=== PATIENT | male | born 1960 | race Caucasian/White ===

== ENCOUNTER 2024-05-21 09:07 | Observation (INO) | payer OTHER, SELFPAY ==
[2024-05-21] VITALS (9 sets, daily range): BP systolic 111–129; BP diastolic 73–99; PULSE 55–60; RESP 16–20; TEMP 36.4–36.6; O2SAT 94–98; BMI 29.0
--- NOTE | ~2024-05-21 | US_ITS ---
EXAMINATION: US ABDOMEN LIMITED HISTORY: RUQ pain TECHNIQUE: Real-time grayscale ultrasound imaging of the right upper quadrant was performed and images were reviewed. COMPARISON: There are no prior studies for comparison. FINDINGS: Liver: The liver is normal in size and demonstrates homogeneous echotexture. No focal mass or intrahepatic biliary ductal dilatation is identified. There is normal hepatopedal flow in the portal vein. Gallbladder and biliary tree: Multiple polyps are noted in the gallbladder measuring up to 3 mm in size. The gallbladder is otherwise unremarkable, without evidence of calculi, wall thickening, or pericholecystic fluid. There is no sonographic Levin sign. The common bile duct is normal in caliber measuring 3 mm. There is no free fluid in the right upper quadrant. US/US abdomen limited IMPRESSION: Multiple gallbladder polyps. Follow-up is recommended. Electronically signed by: Juan Camejo MD 05/21/2024 02:30 PM [facility] [place]
--- NOTE | ~2024-05-21 | CT_ITS ---
EXAMINATION: CT ANGIOGRAM CHEST CLINICAL INFORMATION: Chest pain, shortness of breath and near-syncope. COMPARISON: None available. TECHNIQUE: Multiple axial images were obtained through the chest after the administration of 50 mL of Omnipaque 350 intravenous contrast. Extensive vascular post-processing including two-dimensional and three-dimensional reformatted images were created and reviewed on an independent workstation. This CT examination was performed using dose optimization techniques as appropriate, variously including the following: *Automated exposure control *Adjustment of mA and/or kV according to patient size (this includes techniques or standardized protocols for targeted exams where dose is matched to indication/reason for exam; i.e. extremities or head) *Use of iterative reconstruction technique. DLP: 311. FINDINGS: VASCULAR: There is good opacification of pulmonary artery and branches without any intraluminal defect or narrowing. The pulmonary artery calibers normal. The thoracic aorta is of normal caliber without aneurysm. There is a normal three-vessel branching of the aortic arch. The heart size is normal. No pericardial effusion seen. No coronary artery calcification visualized. NONVASCULAR: Thyroid lobes are symmetrical and normal. Central trachea and bronchi are widely patent. No pleural effusion, calcification or pneumothorax. There is minimal bibasilar dependent pleural thickening.. No pneumothorax. No abnormal mediastinal or axillary lymphadenopathy. Chest wall is unremarkable. There is mild bilateral gynecomastia Visualized liver, spleen, pancreas and gallbladder appears unremarkable. No bony thorax abnormality seen. There are bilateral shoulder prosthesis.. CT/CT angio chest PE protocol IMPRESSION: No evidence of PE. No evidence of aortic aneurysm. The lungs are clear. Fleischner guidelines were followed. Electronically signed by: Gene Nye MD 05/21/2024 12:51 PM EST
--- NOTE | ~2024-05-21 | XR_ITS ---
EXAMINATION: XR CHEST CLINICAL INFORMATION: chest pain COMPARISON: None available. TECHNIQUE: 2 views of the chest were obtained. FINDINGS: The lungs are well-expanded and clear acute process. The heart size and pulmonary vascularity is normal. No gross bony abnormality seen. There are bilateral shoulder prosthesis. XR/XR chest 2V IMPRESSION: Unremarkable chest examination. Electronically signed by: Gene Nye MD 05/21/2024 10:12 AM [facility] [place]
--- NOTE | 2024-05-21 09:08 | ECG_ITS ---
Test Reason : cp Blood Pressure : / mmHG Vent. Rate : 063 BPM Atrial Rate : 063 BPM P-R Int : 172 ms QRS Dur : 096 ms QT Int : 394 ms P-R-T Axes : 024 -15 -05 degrees QTc Int : 403 ms Normal sinus rhythm Normal EKG No previous ECGs available Referred By: Generic ED Physician Electronically Signed By:BEBO GARSIA
[2024-05-21 09:32] LABS: MANUAL DIFF FLAG NO
[2024-05-21 09:33] LABS: Basophils Absolute Auto 0.1 X10*3/uL (0.0-0.2); Basophils Percent Auto 1.1 % (0-2); Eosinophils Absolute Auto 1.2 X10*3/uL (0.0-0.4); Eosinophils Percent Auto 19.4 % (0-4); Hematocrit 43.5 % (42.0-52.0); Hemoglobin 15.1 g/dl (14.0-18.0); Imm Gran Abs Auto 0.03 X10*3/uL (0.00-0.03); Imm Gran Pct Auto 0.5 % (0.0-0.4); Mean Corpuscular HGB Conc 34.7 g/dl (31.0-36.0); Mean Corpuscular Volume 83.7 fL (80.0-98.0); Mean Platelet Volume 9.3 fL (9.4-12.4); Monocytes Absolute Auto 0.6 X10*3/uL (0.1-1.2); Neutrophils Absolute Auto 3.4 x10*3/uL (2.0-8.3); Platelet Count 237 X10*3/uL (160-400); Red Cell Distribution Width 12.7 % (11.0-16.0); White Blood Count 6.4 X10*3/uL (4.8-10.8)
--- NOTE | 2024-05-21 09:44 | ED_ITS ---
HPI - Chest Pain General Chief Complaint: Chest Pain Stated Complaint: Chest pain blurry vision Time Seen by Provider: 05/21/24 09:39 Source: patient and family (patient's ) Mode of arrival: ambulatory Limitations: no limitations History of Present Illness ED Provider: Mari Benavidez PA-C HPI narrative: Patient is a 63 year old assigned male at with a history of HTN presenting to the emergency department today with left sided chest pain, jaw pain, and shortness of breath with walking. Patient states that over the last few weeks he has been having intermittent left sided chest pain, jaw pain, and shortness of breath with walking. Patient states that he was recently admitted at [facility] for this where they did a stress test that was negative and he is scheduled for an echo this coming Tuesday. Patient denies any dizziness, lightheadedness, abdominal pain, nausea, vomiting, fever, chills, blurry vision, double vision, loss of vision, back pain, night sweats, pain with urination, increased urinary frequency, increased urinary urgency, blood in his urine or stool, syncope or a near syncopal episode, recent trauma or falls, bowel incontinence, bladder incontinence, or any other complaints at this time. MD complaint: chest pain Relieving factors: nothing Exacerbating factors: nothing Related Data Home Medications ?Medication ?Instructions ?Recorded ?Confirmed alfuzosin 10 mg tablet,extended 10 mg PO BEDTIME 05/21/24 release 24 hr bupropion HCl (smoking deter) 150 150 mg PO BID 05/21/24 mg tablet,12 hr sustained-release(smoking deterrent) ibuprofen 800 mg tablet 800 mg PO BID 05/21/24 lisinopril 10 mg tablet 10 mg PO DAILY 05/21/24 Allergies Allergy/AdvReac Type Severity Reaction Status Date / Time morphine Allergy Nausea Verified 05/21/24 09:17 Review of Systems 2 Constitutional: Constitutional: Reports no additional constitutional complaints, Denies chills, Denies fever(s) and Denies night sweats Eyes: Eyes: Reports no additional eye complaints, Denies blurry vision, Denies change in vision, Denies diplopia, Denies eye discharge, Denies loss of vision and Denies eye pain ENT: Denies dizziness Cardiovascular: Cardiovascular: Reports no additional cardiovascular complaints, Reports chest pain, Denies lightheadedness, Denies Loss of Consciousness and Reports dyspnea (with walking) Respiratory: Respiratory: Reports no additional respiratory complaints and Reports dyspnea (with walking) Gastrointestinal: Gastrointestinal: Reports no additional gastrointestinal complaints, Denies abdominal pain, Denies melena, Denies hematochezia, Denies change in bowel habits and Denies change in stool character Genitourinary: Genitourinary: Reports no additional male genitourinary complaints, Denies hematuria, Denies oliguria, Denies difficulty urinating, Denies dysuria, Denies urinary frequency, Denies urinary hesitancy, Denies urinary incontinence and Denies urinary urgency Musculoskeletal: Musculoskeletal: Reports no additional musculoskeletal complaints, Denies numbness and Denies tingling Neurologic: Denies dizziness, Denies loss of vision, Denies numbness and Denies tingling Psychiatric: Psychiatric: Reports no additional psychiatric complaints Endocrine: Endocrine: Reports no additional endocrine complaints Hematologic/Lymphatic: Hematologic/Lymphatic: Reports no additional hematologic/lymphatic complaints Allergic/Immunologic: Allergic/Immunologic: Reports no additional allergic/immunologic complaints PMFSH Past Medical History Attestation statement: The following information was validated with the patient. (patient's validated all information) Source: old records reviewed, obtained from family (patient's provided additional history and confirmed the history provided by the patient.) and nursing notes reviewed Social History Social History Alcohol intake: never Advance Directives: No Advance Directives Information Provided: Yes Physical Exam 2 Vital Signs: Vital Signs: Last Vital Signs Temp 97.7 F 05/21/24 13:41 Pulse 55 05/21/24 13:41 Resp 18 05/21/24 13:41 BP 129/99 H 05/21/24 13:41 Pulse Ox 96 05/21/24 13:41 O2 Del Method Room Air 05/21/24 13:41 BMI result Body Mass Index 29.0 Const: General: cooperative, no acute distress, alert and awake Nutritional Appearance: well nourished Orientation/consciousness: patient oriented x3 Limitations: no limitations HEENT: Head: Yes normal to inspection and Yes atraumatic Ears: hearing grossly normal bilaterally and external ears normal General nose exam: Normal external nose present, no nasal discharge noted and no epistaxis Face and sinus: Yes normal facial exam, No abrasion and No laceration Mouth: Normal oral and palatal mucosa present, no drooling and no muffled voice Eyes: General: appearance normal, both eyes and all related structures P eriorbital: periorbital findings normal Eyelids: Yes eyelids normal C onjunctivae: conjunctivae normal Pupils: Equal, round and reactive pupils present EOM: EOMs intact bilaterally Neck: Neck: Yes normal visual inspection, Yes full ROM and Yes no lymphadenopathy Chest: Chest palpation & inspection: normal inspection of the chest Resp: Effort & Inspection: normal respiratory effort and able to speak in complete sentences GI: Inspection: Yes normal to inspection Neuro: General: patient oriented x3 and moves all extremities Cranial nerves: Yes Equal, round and reactive pupils present Cognition (Neuro): n ormal cognition Extrem: General: Yes normal to inspection, Yes full ROM and Yes capillary refill normal Psych: Appearance: grossly normal Mental Status: mental status grossly normal Affect: normal affect Attitude: cooperative Thought process: N ormal thought process present Thought content: Normal thought content present Insight: Good insight present (Psych) Medications Administered Discontinued Medications Generic Name Dose Route Start Last Admin Trade Name Alessandro PRN Reason Stop Dose Admin Iohexol 100 ml 05/21/24 12:24 05/21/24 12:25 Iohexol 350 Mg/Ml 100 Ml Infus..Btl IV 05/21/24 12:25 65 ml ONCE ONE Administration Morphine Sulfate 4 mg 05/21/24 11:25 05/21/24 11:39 Morphine Sulfate 4 Mg/Ml Cartridge IVPUSH 05/21/24 11:26 4 mg ONCE ONE Administration Protocol Morphine Sulfate 4 mg 05/21/24 13:25 05/21/24 13:41 Morphine Sulfate 4 Mg/Ml Cartridge IVPUSH 05/21/24 13:26 4 mg ONCE ONE Administration Protocol Ondansetron HCl 4 mg 05/21/24 11:25 05/21/24 11:37 Ondansetron Hcl 4 Mg/2 Ml Vial IVPUSH 05/21/24 11:26 4 mg ONCE ONE Administration Medical Decision Making Medical Decision Making MDM Narrative: Patient is a 63 year old assigned male at with a history of HTN presenting to the emergency department today with left sided chest pain, jaw pain, and shortness of breath with walking. Patient's physical exam was unremarkable. Patient's blood work was unremarkable. Patient's EKG was unremarkable. Patient stated that intermittently he has abdominal pain after eating - given he still has his gallbladder and his symptoms could be from deferred pain, I obtained an US of the RUQ which was negative for any acute biliary process. Patient's chest x-ray and CT PE study showed no acute process. I spoke to the facilities plant engineer apparel fashion designer who agreed the patient's story is concerning and recommended admission for echocardiogram tomorrow (05/22/2023). I spoke to the hospitalist team who agreed to admission. I explained my physical exam findings as well as all test results to the patient and the patient's . I answered all questions asked by the patient and the patient's . Patient and the patient's verbalized agreement and understanding with this treatment plan and admission. Differential Diagnosis Differential Diagnoses: The differential diagnosis associated with the presentation includes NSTEMI STEMI ACS Chest pain Atypical chest pain Admission/Observation Consideration of admission/observation: Escalation of care including admission/observation considered Patient admitted as noted in the MDM Rationale portion of this note. Consult Healthcare Provider Management of the patient was discussed with: Hospitalist (agreed to admission as noted in the MDM Rationale portion of this note.) and Web Production Designer (spoke to the facilities plant engineer as noted in the MDM Rationale portion of this note.) Lab Data [facility] Lab Attestation statement: I reviewed the patient's lab results. My interpretation of these results are in the MDM Rationale portion of this note. 05/21/24 09:26 05/21/24 09:26 Labs: Lab Results 05/21/24 05/21/24 05/21/24 Range/Units 09:26 09:47 11:50 WBC 6.4 (4.8-10.8) X10*3/uL RBC 5.20 (4.60-5.80) X10*6/uL Hgb 15.1 (14.0-18.0) g/dl Hct 43.5 (42.0-52.0) % MCV 83.7 (80.0-98.0) fL MCH 29.0 (27.0-33.0) pg MCHC 34.7 (31.0-36.0) g/dl RDW 12.7 (11.0-16.0) % Plt Count 237 (160-400) X10*3/uL MPV 9.3 L (9.4-12.4) fL Immature Gran % (Auto) 0.5 H (0.0-0.4) % Neut % (Auto) 54.0 (45-73) % Lymph % (Auto) 15.0 L (20-40) % Harvey % (Auto) 10.0 (2-11) % Eos % (Auto) 19.4 H (0-4) % Baso % (Auto) 1.1 (0-2) % Lymph # (Auto) 1.0 L (1.2-4.9) X10*3/uL Harvey # (Auto) 0.6 (0.1-1.2) X10*3/uL Eos # (Auto) 1.2 H (0.0-0.4) X10*3/uL Baso # (Auto) 0.1 (0.0-0.2) X10*3/uL Abs Immat Gran (auto) 0.03 (0.00-0.03) X10*3/uL Absolute Neuts (auto) 3.4 (2.0-8.3) x10*3/uL Absolute Nucleated RBC 0.000 (0.0-0.012) X10*3/uL Nucleated RBC % (auto) 0.0 (0.0-0.2) /100WBC Sodium 141 (135-145) mmol/L Potassium 3.9 (3.3-5.1) mmol/L Chloride 111 H (96-108) mmol/L Carbon Dioxide 21 L (22-29) mmol/L Anion Gap 13 (12-20) BUN 17 H (9-16) mg/dL Creatinine 0.93 (0.5-1.4) mg/dL Estim Creat Clear Calc 85.2 Estimated GFR > 60 Random Glucose 101 (60-115) mg/dL Calcium 9.4 (8.4-10.2) mg/dL Total Bilirubin 0.3 (0.0-1.0) mg/dL AST 22 (5-37) U/L ALT 24 (0-40) U/L Alkaline Phosphatase 86 (39-117) U/L Troponin I High Sens < 2.7 < 2.7 (<3.5-35.0) ng/L B-Natriuretic Peptide < 10 (<100) pg/mL Total Protein 7.1 (6.5-8.0) g/dL Albumin 4.2 (3.5-5.0) g/dL Influenza Type A (PCR) NEGATIVE (Negative) Influenza Type B (PCR) NEGATIVE (Negative) RSV RNA Qual (PCR) NEGATIVE (Negative) SARS-CoV-2 RNA (RT-PCR) NEGATIVE (Negative) Independent Interpretation I performed an independent interpretation of an: EKG, Plain X-Ray, Ultrasound and CT Scan Interpretation: My interpretation is in agreement with the radiologist's impression of these imaging studies. L EXAMINATION: XR CHEST CLINICAL INFORMATION: chest pain COMPARISON: None available. TECHNIQUE: 2 views of the chest were obtained. FINDINGS: The lungs are well-expanded and clear acute process. The heart size and pulmonary vascularity is normal. No gross bony abnormality seen. There are bilateral shoulder prosthesis. XR/XR chest 2V IMPRESSION: Unremarkable chest examination. Electronically signed by: Gene Nye MD 05/21/2024 10:12 AM [facility] Dictated By: Gene Nye MD Signed By: Electronically signed by Gene Nye MD 05/21/24 1012 Report Number: [id number]: Total DLP = 311.00 mGy-cm EXAMINATION: CT ANGIOGRAM CHEST CLINICAL INFORMATION: Chest pain, shortness of breath and near-syncope. COMPARISON: None available. TECHNIQUE: Multiple axial images were obtained through the chest after the administration of 50 mL of Omnipaque 350 intravenous contrast. Extensive vascular post-processing including two-dimensional and three- dimensional reformatted images were created and reviewed on an independent workstation. This CT examination was performed using dose optimization techniques as appropriate, variously including the following: *Automated exposure control *Adjustment of mA and/or kV according to patient size (this includes techniques or standardized protocols for targeted exams where dose is matched to indication/reason for exam; i.e. extremities or head) *Use of iterative reconstruction technique. DLP: 311. FINDINGS: VASCULAR: There is good opacification of pulmonary artery and branches without any intraluminal defect or narrowing. The pulmonary artery calibers normal. The thoracic aorta is of normal caliber without aneurysm. There is a normal three- vessel branching of the aortic arch. The heart size is normal. No pericardial effusion seen. No coronary artery calcification visualized. NONVASCULAR: Thyroid lobes are symmetrical and normal. Central trachea and bronchi are widely patent. No pleural effusion, calcification or pneumothorax. There is minimal bibasilar dependent pleural thickening.. No pneumothorax. No abnormal mediastinal or axillary lymphadenopathy. Chest wall is unremarkable. There is mild bilateral gynecomastia Visualized liver, spleen, pancreas and gallbladder appears unremarkable. No bony thorax abnormality seen. There are bilateral shoulder prosthesis. CT/CT angio chest PE protocol IMPRESSION: No evidence of PE. No evidence of aortic aneurysm. The lungs are clear. Fleischner guidelines were followed. Electronically signed by: Gene Nye MD 05/21/2024 12:51 PM [facility] Dictated By: eGne Nye MD Signed By: Electronically signed by Gene Nye MD 05/21/24 1251 EXAMINATION: US ABDOMEN LIMITED HISTORY: RUQ pain TECHNIQUE: Real-time grayscale ultrasound imaging of the right upper quadrant was performed and images were reviewed. COMPARISON: There are no prior studies for comparison. FINDINGS: Liver: The liver is normal in size and demonstrates homogeneous echotexture. No focal mass or intrahepatic biliary ductal dilatation is identified. There is normal hepatopedal flow in the portal vein. Gallbladder and biliary tree: Multiple polyps are noted in the gallbladder measuring up to 3 mm in size. The gallbladder is otherwise unremarkable, without evidence of calculi, wall thickening, or pericholecystic fluid. There is no sonographic Levin sign. The common bile duct is normal in caliber measuring 3 mm. There is no free fluid in the right upper quadrant. US/US abdomen limited IMPRESSION: Multiple gallbladder polyps. Follow-up is recommended. Electronically signed by: Juan Camejo MD 05/21/2024 02:30 PM EST Dictated By: Juan Camejo MD Signed By: Electronically signed by Juan Camejo MD 05/21/24 1430 Vent. Rate: 063 BPM Atrial Rate: 063 BPM P-R Int: 172 ms QRS Dur: 096 ms QT Int: 394 ms P-R-T Axes: 024 -15 -05 degrees QTc Int: 403 ms Normal sinus rhythm Inferior infarct, age undetermined No previous ECGs available DD/ 0911 Radiology Impression Discussion of test interpretation with radiology: I have reviewed the radiologist's reading. Independent Historian Clinical information obtained from an independent historian. History obtained from or confirmed by: Spouse (patient's provided additional history and confirmed the history provided by the patient.) Chronic Conditions Patient?s care impacted by: Hypertension Critical Care Time Critical Care Time Critical Care Time: Yes Total Critical Care Time: 42 Attestation: I spent 42 minutes of Critical Care Time with this patient. This does not include time spent on separately reported billable procedures. Discharge Plan Discharge Clinical Impression: Chest pain Patient Disposition: Admitted As Inpatient
[2024-05-21 09:57] LABS: Alanine Aminotransferase 24 U/L (0-40); Albumin Level 4.2 g/dL (3.5-5.0); Alkaline Phosphatase 86 U/L (39-117); Anion Gap 13 (12-20); Aspartate Amino Transferase 22 U/L (5-37); Bilirubin Total 0.3 mg/dL (0.0-1.0); Blood Urea Nitrogen 17 mg/dL (9-16); Calcium 9.4 mg/dL (8.4-10.2); Carbon Dioxide 21 mmol/L (22-29); Chloride 111 mmol/L (96-108); Creatinine Clr Calc Pharmacy 85.2; Estimated Glomerular Filt Rate > 60; Glucose Random 101 mg/dL (60-115); Potassium 3.9 mmol/L (3.3-5.1); Sodium 141 mmol/L (135-145); Total Protein 7.1 g/dL (6.5-8.0)
[2024-05-21 10:01] LABS: B Type Natriuretic Peptide < 10 pg/mL (<100)
[2024-05-21 10:04] LABS: Troponin-I High Sensitivity < 2.7 ng/L (<3.5-35.0)
[2024-05-21 10:39] LABS: Influenza A PCR NEGATIVE (Negative); Influenza B PCR NEGATIVE (Negative); Resp Syncy Virus RNA Qual PCR NEGATIVE (Negative); SARS COV2 PCR INHOUSE NEGATIVE (Negative)
[2024-05-21] MEDS: ondansetron HCL 4 MG/2 ML VIAL IVPUSH (11:37)
[2024-05-21] MEDS: Morphine Sulfate 4 MG/ML CARTRIDGE IVPUSH ×2 (11:39→13:41)
[2024-05-21 12:22] LABS: Troponin-I High Sensitivity < 2.7 ng/L (<3.5-35.0)
[2024-05-21] MEDS: iohexoL 350 MG/ML 100 ML INFUS..BTL IV (12:25)
--- NOTE | 2024-05-21 15:30 | P.HPHOSP_ITS ---
History of Present Illness Date of Service: 05/21/24 Chief Complaint: Chest pain 63-year-old man presented to the ER for complaints of left sided chest pain with jaw pain and shortness of breath with ambulation. He was at [facility] on 05/11/2024 chest pain but left against medical advice. He ended up having a stress test on 05/15/2024 that appeared to be normal. He reported that a few months ago he started feeling more shortness of breath especially with ambulation, difficulty with lying flat while in bed with accompanying dry cough and overall fatigue. He had seen his primary care provider and was found to have elevated blood pressure/hypertension and was started on lisinopril. He had been fairly stable but still with the fatigue and shortness breath up until he went to [facility] for further evaluation were on 05/11/2024 he developed the chest pain that radiated did from his left shoulder to his jaw and neck. He then reported that today since about 09:00 o'clock this morning has had this pain that he describes as steady dull pain 5/10 that also causes him to have what seems like a migraine headache. He denied any increase pain with inspiration. He also denied any nausea, vomiting, diarrhea, visual changes, loss of consciousness, recent trauma or injury. In the ER, troponins were negative for any acute ischemic changes, negative troponin, chest CTA negative for consolidation or effusion or pulmonary embolism. In the ER he received a dose of aspirin, morphine, Zofran. Plan is to place on observation for further management and treatment of chest pain. Review of Systems 2 Review of Systems: Denies any recent fever chills or decrease in appetite respiratory see HPI cardiovascular See HPI gastrointestinal denies any dysphagia abdominal pain nausea vomiting or diarrhea genitourinary denies any dysuria frequency or hematuria musculoskeletal denies any joint pain or swelling neuropsych denies any weakness or seizures all other systems reviewed are negative [facility] Medical History (Updated 05/21/24 @ 17:36 by Toya Johnson NP) Hypertension Pertinent family history: No significant cardiac history Surgical History (Updated 05/21/24 @ 17:36 by Toya Johnson NP) H/O knee surgery H/O shoulder surgery Social History Alcohol intake: never Patient Tobacco Use Status: Never used Tobacco Advance Directives: No Advance Directives Information Provided: Yes Meds Allergies Allergy/AdvReac Type Severity Reaction Status Date / Time morphine Allergy Nausea Verified 05/21/24 09:17 Active Medications: Current Medications Acetaminophen (Acetaminophen 325 Mg Tablet) 650 mg PO Q6H PRN PRN Reason: Pain, Mild 1-3,fever,headache Calcium Carbonate (Calcium Carbonate 750 Mg Tab.Chew) 750 mg PO Q4H PRN PRN Reason: Heartburn Enoxaparin Sodium (Enoxaparin Sodium 40 Mg/0.4 Ml Syringe) 40 mg SUBCUT Q24H [facility] Magnesium Hydroxide (Milk Of Magnesia 30 Ml Oral.Susp) 30 ml PO DAILY PRN PRN Reason: Constipation Melatonin (Melatonin 3 Mg Tablet) 6 mg PO BEDTIME PRN PRN Reason: Insomnia Ondansetron HCl (Ondansetron Hcl 4 Mg/2 Ml Vial) 4 mg IVPUSH Q8H PRN PRN Reason: Nausea and Vomiting Sodium Chloride (0.9 % Sodium Chloride Flush 3 Ml Syringe) 3 ml IVFLUSH QSHIFT [facility] Home Medications ?Medication ?Instructions ?Recorded ?Confirmed ?Last Taken ?Type alfuzosin 10 mg tablet,extended 10 mg PO BEDTIME 05/21/24 05/21/24 05/20/24 History release 24 hr bupropion HCl (smoking deter) 150 300 mg PO DAILY 05/21/24 05/21/24 05/21/24 History mg tablet,12 hr sustained-release(smoking deterrent) ibuprofen 800 mg tablet 800 mg PO BID 05/21/24 05/21/24 05/21/24 History lisinopril 10 mg tablet 10 mg PO BEDTIME 05/21/24 05/21/24 05/20/24 History omeprazole 20 mg capsule,delayed 20 mg PO DAILY@0630 PRN Heartburn 05/21/24 05/21/24 1 Week Ago History release ~05/14/24 Physical Exam 2 Vital Signs and Narrative: Vital Signs: Last Vital Signs Temp 97.7 F 05/21/24 13:41 Pulse 55 05/21/24 13:41 Resp 18 05/21/24 13:41 BP 129/99 H 05/21/24 13:41 Pulse Ox 96 05/21/24 13:41 O2 Del Method Room Air 05/21/24 13:41 BMI result Body Mass Index 29.0 Appearing in no acute distress head is normocephalic atraumatic eyes pupils are PERRLA sclera is anicteric mouth throat mucous membranes are intact and moist neck is supple no lymphadenopathy, no JVD noted lung sounds are clear to auscultation heart regular rate rhythm, clear S1, S2 positive bowel sounds, abdomen is soft, nontender neuro patient is alert x3, no focal deficits Results Labs 05/21/24 09:26 05/21/24 09:26 Labs: Laboratory Results - last 24 hr 05/21/24 05/21/24 05/21/24 09:26 09:47 11:50 MCV 83.7 MCH 29.0 MCHC 34.7 RDW 12.7 Plt Count 237 MPV 9.3 L Immature Gran % (Auto) 0.5 H Neut % (Auto) 54.0 Lymph % (Auto) 15.0 L [place] % (Auto) 10.0 Eos % (Auto) 19.4 H Baso % (Auto) 1.1 Lymph # (Auto) 1.0 L [place] # (Auto) 0.6 Eos # (Auto) 1.2 H Baso # (Auto) 0.1 Abs Immat Gran (auto) 0.03 Absolute Neuts (auto) 3.4 Absolute Nucleated RBC 0.000 Nucleated RBC % (auto) 0.0 Anion Gap 13 Estim Creat Clear Calc 85.2 Estimated GFR > 60 Random Glucose 101 Calcium 9.4 Total Bilirubin 0.3 AST 22 ALT 24 Alkaline Phosphatase 86 Troponin I High Sens < 2.7 < 2.7 B-Natriuretic Peptide < 10 Total Protein 7.1 Albumin 4.2 Influenza Type A (PCR) NEGATIVE Influenza Type B (PCR) NEGATIVE RSV RNA Qual (PCR) NEGATIVE SARS-CoV-2 RNA (RT-PCR) NEGATIVE Imaging Radiologist's Impressions: Impressions Chest X-Ray 05/21/24 09:30 IMPRESSION: Unremarkable chest examination. Electronically signed by: Gene Nye MD 05/21/2024 10:12 AM EST RP Chest CTA 05/21/24 11:58 IMPRESSION: No evidence of PE. No evidence of aortic aneurysm. The lungs are clear. Fleischner guidelines were followed. Electronically signed by: Gene Nye MD 05/21/2024 12:51 PM EST RP Abdomen Ultrasound 05/21/24 14:06 IMPRESSION: Multiple gallbladder polyps. Follow-up is recommended. Electronically signed by: Juan Camejo MD 05/21/2024 02:30 PM [facility] Assessment and Plan (1) Chest pain: Status: Acute Plan 63 year old man placed on observation for chest pain Chest pain ongoing chest pain after recent visit to [facility] on 05/12/24 normal stress test at [facility] negative troponin, negative BNP, no acute ischemic changes on patent leather sorter on telemetry asa and statin cardiology consultation echocardiogram ordered Analgesics as needed Mental health Continue home medications GERD Continue PPI DVT prophylaxis with Lovenox Full code Quality Stroke Does the patient have a stroke diagnosis?: No VTE Prior VTE?: No VTE Risk Level:: Medical - moderate - high VTE Device Contraindication: Treatment Not Indicated VTE Drug Contraindication: N/A - Med Ordered
--- NOTE | 2024-05-21 16:04 | PHA.MEDREC ---
Addendum entered by Mary Angel RPh 05/21/24 16:20: reviewed by [facility]. Original Note: Pharmacy Consult ? Medication Reconciliation Pharmacy has completed the medication reconciliation. Spoke with patient and he confirmed his medications. Patient confirmed he takes the Bupropion 150mg tabs 2 tabs (300mg) in the morning instead of 150mg BID and states its been working fine for him. He confirmed he takes his Lisinopril 10mg tab at bedtime with his Alfuzosin 10mg tab. He states he still takes Omeprazole 20mg tabs as needed for heartburn and he states he last took it about a week ago. He states he is not longer taking the Zolpidem 10mg tab and has not in a while . He confirmed he took all his morning medications this morning and his nighttime medications last night.
[2024-05-21] MEDS: Enoxaparin Sodium 40 MG/0.4 ML SYRINGE SUBCUT (16:22)
[2024-05-21] MEDS: Aspirin 81 MG TAB.CHEW 324 MG PO (16:22)
[2024-05-21] MEDS: 0.9 % Sodium Chloride Flush 3 ML SYRINGE IVFLUSH (16:23)
[2024-05-21] MEDS: Ketorolac Tromethamine 30 MG/ML VIAL IVPUSH (17:55)
[2024-05-21] MEDS: Morphine Sulfate 2 MG/ML CARTRIDGE IVPUSH (19:01)
[2024-05-21] MEDS: lisinopriL 10 MG TABLET PO (22:39)
[2024-05-21] MEDS: Tamsulosin HCL 0.4 MG CAPSULE PO (22:39)
[2024-05-21] MEDS: Atorvastatin Calcium 80 MG TABLET PO (22:39)
[2024-05-21] MEDS: Ibuprofen 800 MG TABLET PO (23:03)
[2024-05-22] VITALS (9 sets, daily range): BP systolic 102–126; BP diastolic 60–79; PULSE 51–59; RESP 12–20; TEMP 36.5–37.1; O2SAT 94–97
[2024-05-22] MEDS: Morphine Sulfate 2 MG/ML CARTRIDGE IVPUSH (00:45)
[2024-05-22 04:58] LABS: Hemoglobin 13.9 g/dl (14.0-18.0); Mean Corpuscular HGB Conc 33.9 g/dl (31.0-36.0); Mean Corpuscular Hemoglobin 28.8 pg (27.0-33.0); Mean Corpuscular Volume 85.1 fL (80.0-98.0); Mean Platelet Volume 9.3 fL (9.4-12.4); Platelet Count 226 X10*3/uL (160-400); Red Blood Count 4.82 X10*6/uL (4.60-5.80); White Blood Count 7.3 X10*3/uL (4.8-10.8)
[2024-05-22 05:29] LABS: Anion Gap 9 (12-20); Blood Urea Nitrogen 20 mg/dL (9-16); Calcium 9.1 mg/dL (8.4-10.2); Carbon Dioxide 27 mmol/L (22-29); Chloride 107 mmol/L (96-108); Creatinine Clr Calc Pharmacy 89.1; Estimated Glomerular Filt Rate > 60; Glucose Random 101 mg/dL (60-115); Potassium 4.1 mmol/L (3.3-5.1); Sodium 139 mmol/L (135-145)
--- NOTE | 2024-05-22 07:00 | CA_ITS ---
Transthoracic Echocardiogram Patient (Last, First, Middle): Lalito Aburto F Gender: Male Date of : 1960 Age: 63 Procedure Date: 05/22/2024 Procedure Type: Transthoracic Echocardiogram Location: ER Height: 170.18 cm Weight: 83.92 kg BSA: 1.96 m2 Heart Rate: 52 bpm BP: 117 / 54 mmHg Resource Development Director: LOUISA Referring MD: Christian Duran MD Symptoms: chest pain Study Quality: Fair ECG Rhythm: Bradycardia Conclusions: - The left ventricular systolic function is normal. The visually estimated ejection fraction is between 65-70%. - No obvious valvular pathology seen on this study. - There is mild dilatation of the ascending aorta measuring 4.20 cm. Findings Left Ventricle Normal left ventricular cavity size. There is mildly increased left ventricular wall thickness. The left ventricular systolic function is normal. The visually estimated ejection fraction is between 65-70%. There is no evidence of regional wall motion abnormalities. Diastolic function is normal for age. Right Ventricle Normal right ventricular cavity size and systolic function. Atria Both atria are normal in size. Aortic Valve There is a normal trileaflet aortic valve. There is no aortic valve stenosis. There is no aortic valve regurgitation. Mitral Valve The mitral valve appears normal. There is no mitral valve regurgitation. There is no mitral valve stenosis. Pulmonic Valve The pulmonic valve is likely normal. Tricuspid Valve There is trace tricuspid valve regurgitation. There is no evidence of pulmonary hypertension. Great Vessels There is mild dilatation of the ascending aorta measuring 4.20 cm. (measurement larger in image due to end-systole). Venous The inferior vena cava is normal in size and collapses greater than 50% with inspiration. Pericardium/Pleural There is no evidence of pericardial effusion. Prior Study Comparison No prior study available for comparison. Recommendations, Care & Conclusions No obvious valvular pathology seen on this study. Measurements 2D Linear Measurements IVSd: 1.13 0.6-0.9/0.6-1.0 cm LVIDd: 4.16 3.9-5.3/4.2-5.9 cm LVIDd Index: 2.12 2.4-3.2/2.2-3.1 cm/m2 LVIDs: 2.49 2.0-3.6 cm LVPWd: 1.07 0.7-1.1 cm LA Diam: 3.10 2.7-3.8/3.0-4.0 cm LAIDs Index: 1.58 1.5-2.3 cm/m2 LV Mass: 192.68 67-162/88-224 g LV Mass Index: 98.31 43-95/49-115 g/m2 LVOT Diam: 2.30 3.0+(-)1.3 cm 2D Systolic Function EF 4C: 61.30 >55% EF 2C: 69.20 >55% EF BiP: 65.10 >55% Mitral Valve MV Pk E: 1.00 MV PK A: 0.96 MV Decel Time: 266.00 E/A: 1.00 E'Lateral: 10.60 E'Medial: 7.18 E/E' Med: 13.90 E/E' Lat: 9.40 PHT: 78.00 MVA PHT: 2.[address] [facility] [place] [employer]: 3.75 Aortic Valve AoV Pk Devendra: 1.47 AoV Mn Devendra: 1.00 AoV VTI: 0.34 AoV Pk Grad: 9.00 Aov Mn Grad: 5.00 RILEY Cont.VTI: 3.17 LVOT LVOT Pk Devendra: 1.13 LVOT Mn Devendra: 0.82 LVOT VTI: 0.26 LVOT Pk Grad: 5.00 LVOT Mn Grad: 3.00 LVOT Diam: 2.30 LVOT Area: 4.15 Diastolic Function MV Pk E: 1.00 MV Pk A: 0.96 E/A: 1.00 E'Medial: 7.18 E/E' Med: 13.90 E' Laterial: 10.60 E/E' Lat: 9.40 Right Ventricle TAPSE (mm): 29.60 TVS' Devendra: 15.30 Tricuspid Valve TR Pk Devendra: 2.21 TR Pk Grad: 20.00 RA Press: 3.00 RVSP: 23.00 Great Vessels Aorta Sinus of Valsalva: 3.80 2.0-3.5 cm Ao Asc: 4.20 2.1-3.4 cm Ao Arch: 3.00 Pulmonary Valve PV Pk Devendra: 0.96 Peak PV Grad: 4.00 Updated in Other Vendor System with Status of Final Christian Duran MD electronically signed on 05/22/2024 12:00:13 PM with status of Final
[2024-05-22] MEDS: Ibuprofen 800 MG TABLET PO ×2 (07:22→20:57)
[2024-05-22] MEDS: Aspirin 81 MG TAB.CHEW PO (07:23)
[2024-05-22] MEDS: 0.9 % Sodium Chloride Flush 3 ML SYRINGE IVFLUSH ×3 (07:23→20:58)
[2024-05-22] MEDS: buPROPion HCl XL 300 MG TAB.ER.24H PO (08:32)
--- NOTE | 2024-05-22 10:31 | PM.CNCAR ---
History of Present Illness History of Present Illness Date of Service: 05/22/24 Chief complaint: chest pain Narrative: This is a cardiology consultation regarding chest pain. Discussed with patient as well as significant other in detail. Essentially, patient has not been feeling good for the last several months. He states that whenever realized on, he feels like he is coughing. With activity, he is having shortness of breath. On 2 different occasions, he had chest pain but at the same time he also had neck pain and headaches. However, difficult to say if it is truly chest pain that is radiating up to the jaw or he feels having pain in different areas like chest, headache, shoulder, jaw pain extra. He is also feeling short of breath with activity. He had a stress test through his own PCP and actually did quite well with a good exercise tolerance and did not have any chest pain. Hence the chest pain itself is not clear if angina or not. Once, the chest pain happened when he was having dinner and sitting down and another time after driving. Hence not truly exertional. He is indeed able to carry out his activities without any exertional chest pains. Review of Systems Review of Systems: Yes all other systems are reviewed and are negative Constitutional: Constitutional: Reports as per HPI and Reports no additional constitutional complaints Eyes: Eyes: Reports as per HPI and Denies no additional eye complaints ENT: Denies system reviewed and no additional complaints, except as documented and Reports as per HPI Cardiovascular: Cardiovascular: Reports as per HPI, Reports no additional cardiovascular complaints, Denies acrocyanosis, Denies cool extremities, Reports chest pain, Denies leg edema, Denies lightheadedness, Denies palpitations and Reports dyspnea Respiratory: Respiratory: Reports as per HPI, Denies no additional respiratory complaints, Reports cough and Reports dyspnea Gastrointestinal: Gastrointestinal: Reports as per HPI and Denies no additional gastrointestinal complaints Genitourinary: Genitourinary: Reports no additional male genitourinary complaints and Reports as per HPI Musculoskeletal: Musculoskeletal: Reports no additional musculoskeletal complaints and Reports as per HPI Integumentary/Breasts: Skin/Breast: Reports system reviewed and no additional complaints, except as docu Neurologic: Reports system reviewed and no additional complaints, except as documented and Reports as per HPI Psychiatric: Psychiatric: Reports no additional psychiatric complaints and Reports as per HPI Endocrine: Endocrine: Reports no additional endocrine complaints, Reports as per HPI and Denies palpitations Hematologic/Lymphatic: Hematologic/Lymphatic: Reports no additional hematologic/lymphatic complaints and Reports as per HPI Allergic/Immunologic: Allergic/Immunologic: Reports no additional allergic/immunologic complaints and Reports as per HPI [facility] Past Medical History Medical History (Updated 05/22/24 @ 10:34 by Christian Duran MD) Hypertension Family History Family History Father No problems noted. Mother No problems noted. Surgical History Surgical History (Updated 05/21/24 @ 17:36 by Toya Johnson NP) H/O knee surgery H/O shoulder surgery Social History Social History Alcohol intake: never Patient Tobacco Use Status: Never used Tobacco Advance Directives: No Advance Directives Information Provided: Yes Meds Allergies Allergy/AdvReac Type Severity Reaction Status Date / Time morphine Allergy Nausea Verified 05/21/24 09:17 Active Medications: Current Medications Acetaminophen (Acetaminophen 325 Mg Tablet) 650 mg PO Q6H PRN PRN Reason: Pain, Mild 1-3,fever,headache Aspirin (Aspirin 81 Mg Tab.Chew) 81 mg PO DAILY [facility] Last Admin: 05/22/24 07:23 Dose: 81 mg Atorvastatin Calcium (Atorvastatin Calcium 80 Mg Tablet) 80 mg PO BEDTIME NANO Last Admin: 05/21/24 22:39 Dose: 80 mg Bupropion HCl (Bupropion Hcl Xl 300 Mg Tab.Er.24h) 300 mg PO DAILY [facility] Last Admin: 05/22/24 08:32 Dose: 300 mg Calcium Carbonate (Calcium Carbonate 750 Mg Tab.Chew) 750 mg PO Q4H PRN PRN Reason: Heartburn Enoxaparin Sodium (Enoxaparin Sodium 40 Mg/0.4 Ml Syringe) 40 mg SUBCUT Q24H [facility] Last Admin: 05/21/24 16:22 Dose: 40 mg Ibuprofen (Ibuprofen 800 Mg Tablet) 800 mg PO BID [facility] Last Admin: 05/22/24 07:22 Dose: 800 mg Lisinopril (Lisinopril 10 Mg Tablet) 10 mg PO BEDTIME [facility]; Protocol Last Admin: 05/21/24 22:39 Dose: 10 mg Magnesium Hydroxide (Milk Of Magnesia 30 Ml Oral.Susp) 30 ml PO DAILY PRN PRN Reason: Constipation Melatonin (Melatonin 3 Mg Tablet) 6 mg PO BEDTIME PRN PRN Reason: Insomnia Morphine Sulfate (Morphine Sulfate 2 Mg/Ml Cartridge) 2 mg IVPUSH Q4H PRN; Protocol PRN Reason: Pain, Severe (Pain Scale 7-10) Last Admin: 05/22/24 00:45 Dose: 2 mg Omeprazole (Omeprazole 20 Mg Capsule.Dr) 20 mg PO DAILY@0630 PRN PRN Reason: Heartburn Ondansetron HCl (Ondansetron Hcl 4 Mg/2 Ml Vial) 4 mg IVPUSH Q8H PRN PRN Reason: Nausea and Vomiting Oxycodone HCl (Oxycodone Hcl Immed Release 5 Mg Tablet) 5 mg PO Q4H PRN PRN Reason: Pain, Moderate(Pain Scale 4-6) Sodium Chloride (0.9 % Sodium Chloride Flush 3 Ml Syringe) 3 ml IVFLUSH [facility] Last Admin: 05/22/24 07:23 Dose: 3 ml Tamsulosin HCl (Tamsulosin Hcl 0.4 Mg Capsule) 0.4 mg PO BEDTIME [facility] Last Admin: 05/21/24 22:39 Dose: 0.4 mg Home Medications ?Medication ?Instructions ?Recorded ?Confirmed ?Last Taken ?Type alfuzosin 10 mg tablet,extended 10 mg PO BEDTIME 05/21/24 05/21/24 05/20/24 History release 24 hr bupropion HCl (smoking deter) 150 300 mg PO DAILY 05/21/24 05/21/24 05/21/24 History mg tablet,12 hr sustained-release(smoking deterrent) ibuprofen 800 mg tablet 800 mg PO BID 05/21/24 05/21/24 05/21/24 History lisinopril 10 mg tablet 10 mg PO BEDTIME 05/21/24 05/21/24 05/20/24 History omeprazole 20 mg capsule,delayed 20 mg PO DAILY@0630 PRN Heartburn 05/21/24 05/21/24 1 Week Ago History release ~05/14/24 Physical Exam Vital Signs: Vital Signs: Last Vital Signs Temp 98.2 F 05/22/24 01:14 Pulse 51 05/22/24 05:06 Resp 12 05/22/24 05:06 BP 102/60 05/22/24 05:06 Pulse Ox 97 05/22/24 05:06 O2 Del Method Room Air 05/22/24 05:06 BMI result Body Mass Index 29.0 Const: General: comfortable and no acute distress Orientation/consciousness: patient oriented x3 HEENT: Other: Unremarkable Head: Yes normal to inspection Neck: Neck: Yes normal visual inspection Chest: Chest palpation & inspection: normal inspection of the chest Resp: Auscultation: clear to auscultation bilaterally Cardio: Palpation: normal PMI Heart sounds: S1 normal heart sound present, S2 normal heart sound present, no gallops, no murmurs and no rubs GI: Palpation (GI): Soft to palpation Back/Spine/Pelvis: Other: unremarkable Skin: General skin exam: no rashes or lesions noted Neuro: General: patient oriented x3 Extrem: General: Yes normal to inspection Psych: Mental Status: mental status grossly normal Objective Labs and Meds 05/22/24 04:39 05/22/24 04:39 Lab results: Laboratory Results - last 24 hr 05/21/24 05/21/24 05/22/24 09:47 11:50 04:39 WBC 7.3 RBC 4.82 Hgb 13.9 L Hct 41.0 L MCV 85.1 MCH 28.8 MCHC 33.9 RDW 13.0 Plt Count 226 MPV 9.3 L Absolute Nucleated RBC 0.000 Nucleated RBC % (auto) 0.0 Sodium 139 Potassium 4.1 Chloride 107 Carbon Dioxide 27 Anion Gap 9 L BUN 20 H Creatinine 0.89 Estim Creat Clear Calc 89.1 Estimated GFR > 60 Random Glucose 101 Calcium 9.1 Troponin I High Sens < 2.7 Influenza Type A (PCR) NEGATIVE Influenza Type B (PCR) NEGATIVE RSV RNA Qual (PCR) NEGATIVE SARS-CoV-2 RNA (RT-PCR) NEGATIVE ECG Interpretation: EKG shows underlying sinus rhythm at 63/Min; can not exclude old inferior infarct but more likely from body habitus; normal PA and corrected QT. Imaging Radiologist's impression: Impressions Chest CTA 05/21/24 11:58 IMPRESSION: No evidence of PE. No evidence of aortic aneurysm. The lungs are clear. Fleischner guidelines were followed. Electronically signed by: Gene Nye MD 05/21/2024 12:51 PM [facility] Abdomen Ultrasound 05/21/24 14:06 IMPRESSION: Multiple gallbladder polyps. Follow-up is recommended. Electronically signed by: Juan Camejo MD 05/21/2024 02:30 PM [facility] Assessment and Plan (1) Chest pain: Status: Acute (2) SOB (shortness of breath): Status: Acute Plan In the stress test performed at [facility], he was able to do 11 METS on Marvin protocol and reached 73% of max predicted heart rate. Hence suboptimal heart rate response. However, no angina, ischemic findings on the EKG during the study. In the CT scan, normal cardiac size, no pericardial effusion or coronary calcification. Overall, uncertain etiology for his symptoms. Not classic for cardiac but definitely needs further evaluation. Cardiac BNP as well as troponins are unremarkable. We will start with an echocardiogram. If this is unremarkable, then consider either an exercise stress echocardiogram or nuclear perfusion imaging based on availability. Discussed with significant other. Procedures Date of Service Date of Service: 05/22/24
--- NOTE | 2024-05-22 10:49 | PC.NURSE ---
Patient states he walked to the bathroom, upon returning he feels nauseous, dizzy, and has a headache. will notify
[2024-05-22] MEDS: ondansetron HCL 4 MG/2 ML VIAL IVPUSH (10:55)
--- NOTE | 2024-05-22 11:41 | MHC.CM.PN ---
Mireya 05/22/24, Pt lives with his , he is independent, no home health services or DME. HCP discussed, he declined to complete form. PCP confirmed: Jessica Chung. to transport home at [place]. DCP: home, self care. CM to follow for DC needs.
--- NOTE | 2024-05-22 11:58 | HO.PM.IMPN ---
Subjective Subjective Date of Service: 05/22/24 Review of Systems Follow up chest pain Physical Exam Vital Signs: Vital Signs: Last Vital Signs Temp 98.2 F 05/22/24 01:14 Pulse 51 05/22/24 10:49 Resp 20 05/22/24 10:49 BP 120/79 05/22/24 10:49 Pulse Ox 96 05/22/24 10:49 O2 Del Method Room Air 05/22/24 05:06 BMI result Body Mass Index 29.0 Appearing in no acute distress lung sounds are clear to auscultation heart regular rate rhythm, clear S1, S2 positive bowel sounds, abdomen is soft, nontender neuro patient is alert x3, no focal deficits Objective Data Active Medications Acetaminophen (Acetaminophen 325 Mg Tablet) 650 mg PO Q6H PRN PRN Reason: Pain, Mild 1-3,fever,headache Aspirin (Aspirin 81 Mg Tab.Chew) 81 mg PO DAILY [facility] Last Admin: 05/22/24 07:23 Dose: 81 mg Documented By: TERESA Atorvastatin Calcium (Atorvastatin Calcium 80 Mg Tablet) 80 mg PO BEDTIME [facility] Last Admin: 05/21/24 22:39 Dose: 80 mg Documented By: JACKSON Bupropion HCl (Bupropion Hcl Xl 300 Mg Tab.Er.24h) 300 mg PO DAILY [facility] Last Admin: 05/22/24 08:32 Dose: 300 mg Documented By: TERESA Calcium Carbonate (Calcium Carbonate 750 Mg Tab.Chew) 750 mg PO Q4H PRN PRN Reason: Heartburn Enoxaparin Sodium (Enoxaparin Sodium 40 Mg/0.4 Ml Syringe) 40 mg SUBCUT Q24H [facility] Last Admin: 05/21/24 16:22 Dose: 40 mg Documented By: CHRIST Ibuprofen (Ibuprofen 800 Mg Tablet) 800 mg PO BID [facility] Last Admin: 05/22/24 07:22 Dose: 800 mg Documented By: TERESA Lisinopril (Lisinopril 10 Mg Tablet) 10 mg PO BEDTIME [facility]; Protocol Last Admin: 05/21/24 22:39 Dose: 10 mg Documented By: JACKSON Magnesium Hydroxide (Milk Of Magnesia 30 Ml Oral.Susp) 30 ml PO DAILY PRN PRN Reason: Constipation Melatonin (Melatonin 3 Mg Tablet) 6 mg PO BEDTIME PRN PRN Reason: Insomnia Morphine Sulfate (Morphine Sulfate 2 Mg/Ml Cartridge) 2 mg IVPUSH Q4H PRN; Protocol PRN Reason: Pain, Severe (Pain Scale 7-10) Last Admin: 05/22/24 00:45 Dose: 2 mg Documented By: JACKSON Omeprazole (Omeprazole 20 Mg Capsule.) 20 mg PO DAILY@0630 PRN PRN Reason: Heartburn Ondansetron HCl (Ondansetron Hcl 4 Mg/2 Ml Vial) 4 mg IVPUSH Q8H PRN PRN Reason: Nausea and Vomiting Last Admin: 05/22/24 10:55 Dose: 4 mg Documented By: TERESA Oxycodone HCl (Oxycodone Hcl Immed Release 5 Mg Tablet) 5 mg PO Q4H PRN PRN Reason: Pain, Moderate(Pain Scale 4-6) Sodium Chloride (0.9 % Sodium Chloride Flush 3 Ml Syringe) [facility] Last Admin: 05/22/24 07:23 Dose: 3 ml Documented By: TERESA Tamsulosin HCl (Tamsulosin Hcl 0.4 Mg Capsule) 0.4 mg PO BEDTIME [facility] Last Admin: 05/21/24 22:39 Dose: 0.4 mg Documented By: JACKSON Labs 05/22/24 04:39 05/22/24 04:39 Labs: Laboratory Results - last 24 hr 05/21/24 05/22/24 11:50 04:39 MCV 85.1 MCH 28.8 MCHC 33.9 RDW 13.0 Plt Count 226 MPV 9.3 L Absolute Nucleated RBC 0.000 Nucleated RBC % (auto) 0.0 Anion Gap 9 L Estim Creat Clear Calc 89.1 Estimated GFR > 60 Random Glucose 101 Calcium 9.1 Troponin I High Sens < 2.7 Assessment and Plan (1) Chest pain: Status: Acute Plan 63 year old man placed on observation for chest pain Chest pain ongoing chest pain after recent visit to [facility] on 05/12/24 normal stress test at [facility] negative troponin, negative BNP, no acute ischemic changes on property assessment monitor on telemetry asa and statin cardiology following echocardiogram normal Analgesics as needed Plan for stress test tomorrow as per cardiology Mental health Continue home medications GERD Continue PPI DVT prophylaxis with Lovenox Full code Quality Stroke Does the patient have a stroke diagnosis?: No VTE Prior VTE?: No VTE Risk Level:: Medical - moderate - high VTE Device Contraindication: Treatment Not Indicated VTE Drug Contraindication: N/A - Med Ordered
[2024-05-22] MEDS: Acetaminophen 325 MG TABLET 650 MG PO ×2 (13:03→23:00)
[2024-05-22] MEDS: oxyCODONE HCl Immed Release 5 MG TABLET PO (16:40)
[2024-05-22] MEDS: Enoxaparin Sodium 40 MG/0.4 ML SYRINGE SUBCUT (16:40)
[2024-05-22] MEDS: lisinopriL 10 MG TABLET PO (20:57)
[2024-05-22] MEDS: Tamsulosin HCL 0.4 MG CAPSULE PO (20:57)
[2024-05-22] MEDS: Atorvastatin Calcium 80 MG TABLET PO (20:57)
[2024-05-23 03:58] VITALS: BP 108/67; PULSE 53; RESP 16; TEMP 36.9; O2SAT 94
--- NOTE | 2024-05-23 07:00 | CA_ITS ---
Acquisition Time: 2024-05-23 10:38:15 Total Exercise Time: 00:07:51 Test Indications: CP,Dyspnea Medications: SEE EMAR Protocol: DEREK Max HR: 108 BPM 68% of Pred: 158 BPM Max BP: 128/78 mmHG Max Work Load: 9.8 METS Exercise Stress Test with exercise 7 mins 51 secs of Derek Protocol, achieving 67% MPHR, 9.8 METS, with reports of 6/10 chest heaviness, mild SOB, and dizziness; with isolated PAC, with normotensive response to exercise. Without EKG changes meeting criteria for ischemia at the achieved workload. In recovery, symptoms improving slowly. Echo images obtained by tech at rest and post peak exercise. Definity contrast utilized. Test reviewed with Dr. Duran. Referred By: Christian Duran Electronically Signed By: Florencio Gilliam
[2024-05-23 07:44] VITALS: BP 114/68; PULSE 55; RESP 18; TEMP 36.4; O2SAT 97
[2024-05-23] MEDS: Ibuprofen 800 MG TABLET PO ×2 (09:03→20:37)
[2024-05-23] MEDS: buPROPion HCl XL 300 MG TAB.ER.24H PO (09:03)
[2024-05-23] MEDS: Aspirin 81 MG TAB.CHEW PO (09:03)
[2024-05-23] MEDS: 0.9 % Sodium Chloride Flush 3 ML SYRINGE IVFLUSH ×3 (09:05→20:39)
--- NOTE | 2024-05-23 10:12 | PM.PNCARD ---
Subjective Subjective Date of Service: 05/23/24 Interval history: He states that he still feels short of breath even walking short distances. Review of Systems Review of Systems Yes all other systems are reviewed and are negative Constitutional: Reports as per HPI and Reports no additional constitutional complaints Eyes: Reports as per HPI and Denies no additional eye complaints Denies system reviewed and no additional complaints, except as documented and Reports as per HPI Cardiovascular: Reports as per HPI, Reports no additional cardiovascular complaints, Denies acrocyanosis, Denies cool extremities, Denies chest pain, Denies leg edema, Denies lightheadedness, Denies palpitations and Reports dyspnea Respiratory: Reports as per HPI, Denies no additional respiratory complaints and Reports dyspnea Gastrointestinal: Reports as per HPI and Denies no additional gastrointestinal complaints Genitourinary: Reports no additional male genitourinary complaints and Reports as per HPI Musculoskeletal: Reports no additional musculoskeletal complaints and Reports as per HPI Skin/Breast: Reports system reviewed and no additional complaints, except as docu Reports system reviewed and no additional complaints, except as documented and Reports as per HPI Psychiatric: Reports no additional psychiatric complaints and Reports as per HPI Endocrine: Reports no additional endocrine complaints, Reports as per HPI and Denies palpitations Hematologic/Lymphatic: Reports no additional hematologic/lymphatic complaints and Reports as per HPI Allergic/Immunologic: Reports no additional allergic/immunologic complaints and Reports as per HPI Physical Exam Vital Signs: Last Vital Signs Temp 97.5 F 05/23/24 07:44 Pulse 55 05/23/24 07:44 Resp 18 05/23/24 07:44 BP 114/68 05/23/24 07:44 Pulse Ox 97 05/23/24 07:44 O2 Del Method Room Air 05/23/24 07:44 BMI result Body Mass Index 29.0 Const General: comfortable and no acute distress Orientation/consciousness: patient oriented x3 HEENT Other: Unremarkable Head: Yes normal to inspection Neck Neck: Yes normal visual inspection Chest Chest palpation & inspection: normal inspection of the chest Resp Auscultation: clear to auscultation bilaterally Cardio Palpation: normal PMI Heart sounds: S1 normal heart sound present, S2 normal heart sound present, no gallops, no murmurs and no rubs GI Palpation (GI): Soft to palpation Back/Spine/Pelvis Other: unremarkable Skin General skin exam: no rashes or lesions noted Neuro General: patient oriented x3 Extrem General: Yes normal to inspection Psych Mental Status: mental status grossly normal Objective Labs and Meds 05/22/24 04:39 05/22/24 04:39 Progress Note: A&P Assessment and plan (1) SOB (shortness of breath): Status: Acute (2) Chest pain: Status: Acute (3) Ascending aorta enlargement: Status: Acute (4) Chronotropic incompetence: Status: Acute (5) Abnormal stress test: Status: Acute Plan Transthoracic echocardiogram shows preserved biventricular function. No significant valve findings. He underwent an exercise stress echocardiogram today. He was able to do 9.8 METS but reached only 67% of target heart rate. Maximum heart rate was 108/Min. He again had symptoms of shortness of breath, chest heaviness, dizziness. No EKG or echocardiogram evidence of ischemia at this workload. Overall, still not clear as to etiology for his symptoms. He needs coronary assessment as the CTA or angiogram. If he is getting an angiogram, then can also do a right heart catheterization for filling pressures. With regard to chronotropic incompetence, that can also be an etiology for his symptoms. If the coronary angio is unremarkable and filling pressures are also normal, then consider atrial pacing. Finally, there is evidence of ascending aortic enlargement on the echocardiogram at around 4.2-4.3 cm but could not calculate clearly. However, on the CTA mentioned to be normal. He will need a dedicated study at some point. Otherwise, in the labs, there is evidence of eosinophilic predominance. If cardiac workup is unremarkable, consider pulmonary workup for possible asthma. Plan discussed with patient as well as significant other. They would like to get everything at rest as an inpatient and hence we will transferred to [facility]. Discussed with Dr. Johnson at [facility]. Time Spent With Patient Time: Total time managing care of this patient today ____ minutes. Progress Note: Quality Stroke Does the patient have a stroke diagnosis?: No Procedures Date of Service Date of Service: 05/23/24
--- NOTE | 2024-05-23 11:52 | HO.PM.IMPN ---
Subjective Subjective Date of Service: 05/23/24 Physical Exam Vital Signs: Vital Signs: Last Vital Signs Temp 97.5 F 05/23/24 07:44 Pulse 55 05/23/24 07:44 Resp 18 05/23/24 07:44 BP 114/68 05/23/24 07:44 Pulse Ox 97 05/23/24 07:44 O2 Del Method Room Air 05/23/24 07:44 BMI result Body Mass Index 29.0 Objective Data Active Medications Acetaminophen (Acetaminophen 325 Mg Tablet) 650 mg PO Q6H PRN PRN Reason: Pain, Mild 1-3,fever,headache Last Admin: 05/22/24 23:00 Dose: 650 mg Documented By: PARVEEN Aspirin (Aspirin 81 Mg Tab.Chew) 81 mg PO DAILY [facility] Last Admin: 05/23/24 09:03 Dose: 81 mg Documented By: UMAIR Atorvastatin Calcium (Atorvastatin Calcium 80 Mg Tablet) 80 mg PO BEDTIME [facility] Last Admin: 05/22/24 20:57 Dose: 80 mg Documented By: PARVEEN Bupropion HCl (Bupropion Hcl Xl 300 Mg Tab.Er.24h) 300 mg PO DAILY [facility] Last Admin: 05/23/24 09:03 Dose: 300 mg Documented By: UMAIR Calcium Carbonate (Calcium Carbonate 750 Mg Tab.Chew) 750 mg PO Q4H PRN PRN Reason: Heartburn Enoxaparin Sodium (Enoxaparin Sodium 40 Mg/0.4 Ml Syringe) 40 mg SUBCUT Q24H [facility] Last Admin: 05/22/24 16:40 Dose: 40 mg Documented By: NNAMDI Ibuprofen (Ibuprofen 800 Mg Tablet) 800 mg PO BID [facility] Last Admin: 05/23/24 09:03 Dose: 800 mg Documented By: UMAIR Lisinopril (Lisinopril 10 Mg Tablet) 10 mg PO BEDTIME [facility]; Protocol Last Admin: 05/22/24 20:57 Dose: 10 mg Documented By: PARVEEN Magnesium Hydroxide (Milk Of Magnesia 30 Ml Oral.Susp) 30 ml PO DAILY PRN PRN Reason: Constipation Melatonin (Melatonin 3 Mg Tablet) 6 mg PO BEDTIME PRN PRN Reason: Insomnia Morphine Sulfate (Morphine Sulfate 2 Mg/Ml Cartridge) 2 mg IVPUSH Q4H PRN; Protocol PRN Reason: Pain, Severe (Pain Scale 7-10) Last Admin: 05/22/24 00:45 Dose: 2 mg Documented By: JACKSON Nitroglycerin (Nitroglycerin 0.4 Mg Tab.Subl) 0.4 mg SUBLINGUAL Q5MX3 PRN PRN Reason: Chest Pain Omeprazole (Omeprazole 20 Mg Capsule.Dr) 20 mg PO DAILY@0630 PRN PRN Reason: Heartburn Ondansetron HCl (Ondansetron Hcl 4 Mg/2 Ml Vial) 4 mg IVPUSH Q8H PRN PRN Reason: Nausea and Vomiting Last Admin: 05/22/24 10:55 Dose: 4 mg Documented By: TERESA Oxycodone HCl (Oxycodone Hcl Immed Release 5 Mg Tablet) 5 mg PO Q4H PRN PRN Reason: Pain, Moderate(Pain Scale 4-6) Last Admin: 05/22/24 16:40 Dose: 5 mg Documented By: NNAMDI Sodium Chloride (0.9 % Sodium Chloride Flush 3 Ml Syringe) 3 ml IVFLUSH QSHIFT [facility] Last Admin: 05/23/24 09:05 Dose: 3 ml Documented By: UMAIR Tamsulosin HCl (Tamsulosin Hcl 0.4 Mg Capsule) 0.4 mg PO BEDTIME [facility] Last Admin: 05/22/24 20:57 Dose: 0.4 mg Documented By: PARVEEN Labs 05/22/24 04:39 05/22/24 04:39 Quality Stroke Does the patient have a stroke diagnosis?: No VTE Prior VTE?: No VTE Risk Level:: Medical - moderate - high VTE Device Contraindication: Treatment Not Indicated VTE Drug Contraindication: N/A - Med Ordered
[2024-05-23 11:59] VITALS: BP 126/65; PULSE 66; RESP 18; TEMP 36.6; O2SAT 98
--- NOTE | 2024-05-23 12:26 | PM.DS ---
DS: Providers Provider Date of Service: 05/23/24 <Toya Johnson NP - Last Filed: 05/23/24 12:28> 05/24/24 <ARTURO Lindsay - Last Filed: 05/24/24 11:36> Date of admission: 05/21/24 15:27 <Toya Johnson NP - Last Filed: 05/23/24 12:28> Date of discharge: 05/23/24 <Toya Johnson NP - Last Filed: 05/23/24 12:28> 05/24/24 <ARTURO Lindsay - Last Filed: 05/24/24 11:36> Primary care physician: Jessica Chung NP <Toya Johnson NP - Last Filed: 05/23/24 12:28> Consults: 05/21/24 15:30 Consult to Cardiology Routine Consulting Provider: [facility] Reason for consultation: chest pain <Toya Johnson NP - Last Filed: 05/23/24 12:28> Discharging clinician: Marianela Lane <ARTURO Lindsay - Last Filed: 05/24/24 11:36> DS: Diagnosis Discharge Diagnosis (1) SOB (shortness of breath): Status: Acute <Toya Johnson NP - Last Filed: 05/23/24 12:28> (2) Chest pain: Status: Acute <Toya Johnson NP - Last Filed: 05/23/24 12:28> (3) Ascending aorta enlargement: Status: Acute <Toya Johnson NP - Last Filed: 05/23/24 12:28> DS: Summary Hospital Course Hospital Course: 63-year-old man presented to the ER for complaints of left sided chest pain with jaw pain and shortness of breath with ambulation. He was at [facility] on 05/11/2024 chest pain but left against medical advice. He ended up having a stress test on 05/15/2024 that appeared to be normal. He reported that a few months ago he started feeling more shortness of breath especially with ambulation, difficulty with lying flat while in bed with accompanying dry cough and overall fatigue. He had seen his primary care provider and was found to have elevated blood pressure/hypertension and was started on lisinopril. He had been fairly stable but still with the fatigue and shortness breath up until he went to [facility] for further evaluation were on 05/11/2024 he developed the chest pain that radiated did from his left shoulder to his jaw and neck. He then reported that today since about 09:00 o'clock this morning has had this pain that he describes as steady dull pain 5/10 that also causes him to have what seems like a migraine headache. He denied any increase pain with inspiration. He also denied any nausea, vomiting, diarrhea, visual changes, loss of consciousness, recent trauma or injury. In the ER, troponins were negative for any acute ischemic changes, negative troponin, chest CTA negative for consolidation or effusion or pulmonary embolism. In the ER he received a dose of aspirin, morphine, Zofran. Plan is to place on observation for further management and treatment of chest pain. 63-year-old man treated for chest pain. Patient had normal troponins, no arrhythmia noted on telemetry, no acute ischemic changes noted on EKG. They continued to report chest pressure and some shortness breath with ambulation. Echocardiogram showed normal EF but some ascending aorta enlargement. BNP was negative, no hypoxia noted. Had stress test and as per Cardiology patient's heart rate was not increasing appropriately. Plan will be for patient to be transferred to [facility] for cardiac catheterization. Started on aspirin and statin. Mental health. Continue bupropion Hypertension. Continue lisinopril BPH. Continue tamsulosin BPH. Continue PPI anticipated to leave 05/23, no bed available overnight. plan for transfer to [facility] today when bed available. no change in patient condition. discharge date 05/24/2024 <Toya Johnson NP - Last Filed: 05/23/24 12:28> Time Attestation Discharge Coordination Time (in mins): 38 <Toya Johnson NP - Last Filed: 05/23/24 12:28> Quality: Safe Use of Opioids Does Pt have an Active Cancer Diagnosis on the Problem List?: No <Toya Johnson NP - Last Filed: 05/23/24 12:28> Quality: Stroke Does the patient have a stroke diagnosis?: No <Toya Johnson NP - Last Filed: 05/23/24 12:28> Physical Exam Vital Signs: Vital Signs: Last Vital Signs Temp 97.9 F 05/23/24 11:59 Pulse 66 05/23/24 11:59 Resp 18 05/23/24 11:59 BP 126/65 05/23/24 11:59 Pulse Ox 98 05/23/24 11:59 O2 Del Method Room Air 05/23/24 11:59 BMI result Body Mass Index 29.0 <Toya Johnson NP - Last Filed: 05/23/24 12:28> Appearing in no acute distress head is normocephalic atraumatic eyes pupils are PERRLA sclera is anicteric mouth throat mucous membranes are intact and moist neck is supple no lymphadenopathy, no JVD noted lung sounds are clear to auscultation heart regular rate rhythm, clear S1, S2 positive bowel sounds, abdomen is soft, nontender neuro patient is alert x3, no focal deficits <Toya Johnson NP - Last Filed: 05/23/24 12:28> Discharge Plan Discharge Anticipated Discharge Date/Time: 05/23/24 12:22 <Toya Johnson NP - Last Filed: 05/23/24 12:28> Patient Disposition: [facility] <Toya Johnson NP - Last Filed: 05/23/24 12:28> Discharge Diagnosis: Chest pain <Toya Johnson NP - Last Filed: 05/23/24 12:28> Chest pain <ARTURO Lindsay - Last Filed: 05/24/24 11:36> Referrals: [facility] [Outside] - 1 Week Jessica Chung NP [Primary Care Provider] - 1 Week <Toya Johnson NP - Last Filed: 05/23/24 12:28> Discharge Medications: New atorvastatin 80 mg Tablet 80 mg PO BEDTIME Qty: 30 0RF aspirin 81 mg Tablet,Chewable 81 mg PO DAILY Qty: 30 0RF Continued ibuprofen 800 mg tablet 800 mg PO BID lisinopril 10 mg tablet 10 mg PO BEDTIME alfuzosin 10 mg tablet extended release 24 hr 10 mg PO BEDTIME bupropion HCl (smoking deter) 150 mg tablet extended release 12 hr 300 mg PO DAILY omeprazole 20 mg capsule,delayed release(DR/EC) 20 mg PO DAILY@0630 PRN (Reason: Heartburn) <Toya Johnson NP - Last Filed: 05/23/24 12:28> Discharge Orders: Discharge Order (Routine); Ordered 05/23/24 Ordered By: Toya Johnson <Toya Johnson NP - Last Filed: 05/23/24 12:28> Diet: Advance to usual diet <Toya Johnson NP - Last Filed: 05/23/24 12:28> Advance to usual diet <ARTURO Lindsay - Last Filed: 05/24/24 11:36> Activity on Discharge: As tolerated <Toya Johnson NP - Last Filed: 05/23/24 12:28> As tolerated <ARTURO Lindsay - Last Filed: 05/24/24 11:36> Stand Alone Forms: Patient Portal Discharge page <Toya Johnson NP - Last Filed: 05/23/24 12:28> Print Language: French <Toya Johnson NP - Last Filed: 05/23/24 12:28> Care Plan Goals: Transfer to [facility] for cardiac catheterization <Toya Johnson NP - Last Filed: 05/23/24 12:28> Health Concerns: Chest pain <Toya Johnson NP - Last Filed: 05/23/24 12:28> Plan of Treatment: Follow-up with primary care provider as needed Take all medications as prescribed <Toya Johnson NP - Last Filed: 05/23/24 12:28> Assessment: See discharge summary <Toya Johnson NP - Last Filed: 05/23/24 12:28>
--- NOTE | 2024-05-23 12:43 | MHC.CM.PN ---
Patient will be transferred to [facility] today.
[2024-05-23 15:19] VITALS: BP 120/72; PULSE 67; RESP 18; TEMP 36.7; O2SAT 94
[2024-05-23] MEDS: Enoxaparin Sodium 40 MG/0.4 ML SYRINGE SUBCUT (17:01)
[2024-05-23 19:38] VITALS: BP 120/78; PULSE 69; RESP 20; TEMP 37; O2SAT 93
[2024-05-23] MEDS: lisinopriL 10 MG TABLET PO (20:38)
[2024-05-23] MEDS: Atorvastatin Calcium 80 MG TABLET PO (20:38)
[2024-05-23] MEDS: Tamsulosin HCL 0.4 MG CAPSULE PO (20:38)
[2024-05-23] MEDS: oxyCODONE HCl Immed Release 5 MG TABLET PO (22:54)
[2024-05-23 23:31] VITALS: BP 110/68; PULSE 58; RESP 18; TEMP 36.6; O2SAT 96
[2024-05-24 03:56] VITALS: BP 106/66; PULSE 53; RESP 18; TEMP 36.2; O2SAT 97
[2024-05-24 07:22] VITALS: BP 113/64; PULSE 50; RESP 20; TEMP 36.4; O2SAT 96
[2024-05-24] MEDS: 0.9 % Sodium Chloride Flush 3 ML SYRINGE IVFLUSH (07:53)
[2024-05-24] MEDS: buPROPion HCl XL 300 MG TAB.ER.24H PO (07:53)
[2024-05-24] MEDS: Aspirin 81 MG TAB.CHEW PO (07:53)
[2024-05-24] MEDS: Ibuprofen 800 MG TABLET PO (07:53)
--- NOTE | 2024-05-24 10:22 | MHC.CM.PN ---
Patient awaits a bed at [facility].
[2024-05-24 11:30] VITALS: BP 117/80; PULSE 54; RESP 20; TEMP 36.8; O2SAT 96
[2024-05-24] MEDS: oxyCODONE HCl Immed Release 5 MG TABLET PO (13:19)
== END 2024-05-24 13:23 | disposition short-term general hospital (02) ==
LOC: HO.ED 11:02 → HO.EDOVER 15:31 → HO.IMC 05-22 19:07
PROVIDERS: Physician Assistant Medical; Admitting Provider Nurse Practitioner Acute Care; Emergency Provider Emergency Medicine Emergency Medical Services; PCP Nurse Practitioner Family; Visit Provider Physician Assistant Medical
DX: R06.02 Shortness of breath (principal); R07.9 Chest pain, unspecified; I71.21 Aneurysm of the ascending aorta, without rupture; I45.89 Other specified conduction disorders; R94.39 Abnormal result of other cardiovascular function study; R05.9 Cough, unspecified; R68.84 Jaw pain; R06.09 Other forms of dyspnea; I10 Essential (primary) hypertension; Z79.899 Other long term (current) drug therapy; Z03.818 Encounter for observation for suspected exposure to other biological agents ruled out
CPT/HCPCS: 0241U; 36415; 71046; 71275; 76705; 80048; 80053; 83880; 84484; 85025; 85027; 93005; 93306; 93350; 96372; 96374; 96375; 96376; 99222; 99285; J1650; J1885; J2270; J2405; Q9957; Q9967

== ENCOUNTER → 2024-05-21 09:08 | Outpatient (BNV) | payer OTHER, SELFPAY | PROVIDERS: Admitting Provider Nurse Practitioner Acute Care; Emergency Provider Emergency Medicine Emergency Medical Services; PCP Nurse Practitioner Family; Visit Provider Internal Medicine | DX: R07.9 Chest pain, unspecified (principal) | CPT/HCPCS: 93010 ==

== ENCOUNTER → 2024-05-21 09:30 | Outpatient (BNV) | payer OTHER, SELFPAY | PROVIDERS: Emergency Provider Emergency Medicine Emergency Medical Services; PCP Nurse Practitioner Family; Visit Provider Radiology Diagnostic Radiology | DX: R07.9 Chest pain, unspecified (principal); K82.4 Cholesterolosis of gallbladder | CPT/HCPCS: 71046; 71275 ==

== ENCOUNTER 2024-05-21 15:27 | Outpatient (BNV) | payer OTHER, SELFPAY | END 2024-05-22 07:00 | PROVIDERS: Admitting Provider Nurse Practitioner Acute Care; Emergency Provider Emergency Medicine Emergency Medical Services; PCP Nurse Practitioner Family; Visit Provider Internal Medicine | DX: R07.9 Chest pain, unspecified (principal); I77.810 Thoracic aortic ectasia | CPT/HCPCS: 93306 ==

== ENCOUNTER 2024-05-21 15:27 | Outpatient (BNV) | payer OTHER, SELFPAY | END 2024-05-23 07:00 | PROVIDERS: Admitting Provider Nurse Practitioner Acute Care; Emergency Provider Emergency Medicine Emergency Medical Services; PCP Nurse Practitioner Family | DX: R07.9 Chest pain, unspecified (principal); R06.02 Shortness of breath; I49.1 Atrial premature depolarization | CPT/HCPCS: 93016; 93018; 93350; 93352 ==

== ENCOUNTER → 2024-05-21 15:27 | Outpatient (BNV) | payer OTHER, SELFPAY | PROVIDERS: Admitting Provider Nurse Practitioner Acute Care; Emergency Provider Emergency Medicine Emergency Medical Services; PCP Nurse Practitioner Family; Visit Provider Internal Medicine | DX: R07.9 Chest pain, unspecified (principal); R06.02 Shortness of breath | CPT/HCPCS: 99223 ==

== ENCOUNTER → 2024-05-21 15:27 | Outpatient (BNV) | payer OTHER, SELFPAY | PROVIDERS: Admitting Provider Nurse Practitioner Acute Care; Emergency Provider Emergency Medicine Emergency Medical Services; PCP Nurse Practitioner Family; Visit Provider Nurse Practitioner Acute Care | DX: R06.02 Shortness of breath (principal); R07.9 Chest pain, unspecified; I77.89 Other specified disorders of arteries and arterioles | CPT/HCPCS: 99223; 99232; 99239 ==